=== PATIENT | male | born 1985 | race Caucasian/White ===

== ENCOUNTER 2019-02-10 11:22 | Observation (INO) ==
[2019-02-10] MEDS ORDERED: 0.9 % Sodium Chloride 1,000 ML IVC ONE (11:34)
[2019-02-10 11:43] LABS: Bilirubin,Urine Negative (Negative); Blood,Urine Negative (Negative); Clarity,Urine Clear (Clear); Color,Urine Yellow (Yellow); Glucose,Urine (UA) Normal (Normal); Ketones,Urine Negative (Negative); Leukocyte Esterase,Urine Negative (Negative); Nitrite,Urine Negative (Negative); Protein,Urine Negative (Neg-Trace); Specific Gravity,Urine < 1.005 (1.010-1.025); Urobilinogen,Urine Normal (Normal)
[2019-02-10 11:53] LABS: Amphetamine Screen,Urine Negative ng/mL (Cutoff=1000); Barbiturate Screen,Urine Negative ng/mL (Cutoff=200); Benzodiazepines Screen,Urine Negative ng/mL (Cutoff=200); Cannabinoid Screen,Urine Negative ng/mL (Cutoff = 50); Cocaine Screen,Urine Negative ng/mL (Cutoff= 300); Opiate Screen,Urine Negative ng/mL (Cutoff=300); Phencyclidine Screen,Urine Negative ng/mL (Cutoff=25)
[2019-02-10 11:55] LABS: Basophils % 0.4 %; Eosinophils % 0.2 %; Hematocrit 43.9 % (37.5-50.1); Hemoglobin 15.1 g/dL (12.9-16.9); Immature Granulocytes % 0.7 % (0-4); Lymphocytes # 2.1 K/mcL (0.6-4.6); Lymphocytes % 19.4 %; Mean Corpuscular HGB Conc 34.4 g/dL (31.6-35.5); Mean Corpuscular Hemoglobin 29.7 pg (28.0-33.3); Mean Corpuscular Volume 86.4 fL (83.0-100.0); Mean Platelet Volume 9.1 fL (9.4-12.4); Monocytes # 0.5 K/mcL (0.0-1.3); Monocytes % 4.8 %; Neutrophils # 7.9 K/mcL (1.6-8.9); Platelet Count 305 K/mcL (140-400); Red Blood Count 5.08 M/mcL (4.19-5.50); Red Cell Distribution Width 14.7 % (11.5-14.5); Segmented Neutrophils % 74.5 %
[2019-02-10 12:12] LABS: Acetaminophen < 10 mcg/mL (10-20); Alanine Aminotransferase 22 Units/L (7-52); Albumin 4.7 g/dL (3.5-5.7); Albumin/Globulin Ratio 1.6 (1.1-2.2); Alkaline Phosphatase 123 Units/L (34-104); Aspartate Amino Transferase 14 Units/L (13-39); BUN/Creatinine Ratio 22 (6-26); Bilirubin,Direct 0.1 mg/dL (0.0-0.2); Bilirubin,Indirect 0.4 mg/dL (0.0-1.2); Bilirubin,Total 0.5 mg/dL (0.3-1.0); Blood Urea Nitrogen 16 mg/dL (6-20); Calcium 9.8 mg/dL (8.6-10.3); Carbon Dioxide 22 mEq/L (23-29); Chloride 105 mEq/L (98-107); Ethanol < 10 mg/dL (Less than 10); Glucose 139 mg/dL (70-105); Osmolality,Calculated 289 (280-300); Potassium 3.5 mEq/L (3.5-5.1); Salicylate < 2.5 mg/dL (15.0-30.0); Sodium 138 mEq/L (136-145); Total Protein 7.7 g/dL (6.4-8.9); eGFR For Non-African Americans > 60 (> 60)
[2019-02-10] MEDS ORDERED: Ondansetron 4 MG/2 ML VIAL IVP PRN (12:57)
[2019-02-10] MEDS ORDERED: Acetaminophen 325 MG TABLET PO PRN (12:57)
[2019-02-10] MEDS ORDERED: Naloxone 0.4 MG/ML INJ IVP PRN (12:57)
[2019-02-10] MEDS ORDERED: Nicotine 21 MG PATCH.TD24 TD PRN (13:13)
--- NOTE | 2019-02-10 13:13 | Internal Med History&Physical ---
Date of Encounter: 02/10/19 Time of Encounter: 12:53 Internal Medicine - H&P: HPI Chief complaint: Overdose Admitted From: Emergency Dept History of present illness: Satya Medina is a 33 M w hx dep/anx, HTN, smoker, who p/w intentional drug in gestion/overdose. Patient reports that he took ~70 tablets of seroquel 200 mg and 25 tablets of trazodone 50 mg, as part of an attempted suicide. Says he's had a lot adding up causing stress but refuses to talk about it further. Long history mental health issues and has attempt suicide in the past. No cutting. Is a smoker. In the ED, pt awake and alert without somnolence. Poison control contacted; instructed to monitor for airway compromise and ECG changes. ECG initially normal, and repeat also normal with QTc 412 and no widening of QRS. Pt given NS 1L bolus and admitted for observation. Past medical, surgical, social, and family histories reviewed and updated as below. Past Med Surg Social Fam HX - Past Medical History Medical history: hypertension, kidney stones Additional medical history: HTN, ulcer Psychiatric history: prior suicide attempt, previous psychiatric hospitalization - Past Surgical History Surgical History: appendectomy, herniorrhaphy, other Additional surgical history: Kidney stone removal. perforated ulcers. nose polyps. scopes to knees - Social History Smoking Status: Current every day smoker Smokeless Tobacco Status: No Alcohol use: none Drug use: none - Family History Father Hx Family GI Disorders: Yes (ulceritive cholitis) Internal Medicine - H&P: Meds Gabapentin [Neurontin] 600 mg PO TID 08/02/16 [History] FLUoxetine HCl [Prozac] 40 mg PO DAILY #60 capsule 08/05/16 [Rx] Quetiapine Fumarate [Seroquel] 100 mg PO 0900 #30 tablet 08/05/16 [Rx] Quetiapine Fumarate [Seroquel] 500 mg PO HS #120 tablet 08/05/16 [Rx] Albuterol Sulfate [Proair Hfa] 2 puff IH Q4H PRN 08/06/16 [History] Lisinopril [Zestril] 20 mg PO DAILY 08/06/16 [History] Ibuprofen 800 mg PO TIDWM PRN #20 tablet 08/08/16 [Rx] Ondansetron ODT [Zofran ODT] 4 mg SL Q6HR PRN #10 tab.rapdis 08/08/16 [Rx] Tamsulosin [Flomax] 0.4 mg PO DAILY #30 capsule 08/08/16 [Rx] 3 Allergy/AdvReac Type Severity Reaction Status Date / Time adhesive tape Allergy Rash Verified 12/11/15 11:45 codeine AdvReac Nausea Verified 08/02/16 14:31 All Systems PM: A 10-system review of systems was performed and is negative for pertinent findings except as documented above in the HPI. - Constitutional Vitals: Temp Pulse Resp BP Pulse Ox 97.6 F 84 22 181/124 97 02/10/19 11:28 02/10/19 11:28 02/10/19 11:28 02/10/19 11:28 02/10/19 11:53 Exam: General: NAD, avoidant eye contact, disheveled Head: Atraumatic, normocephalic. Face symmetric Eyes: EOMI, sclerae anicteric ENT: Mucous membranes dry. Normal oral mucosa. Trachea midline. Thoracic: No visible chest wall deformities. Normal breath sounds b/l, no wheezing or crackles Cardio: Normal S1 and S2, regular rate and rhythm, no murmurs Abdomen: Soft, nontender, nondistended. Extremities: Warm, well perfused. DP pulses 2+ b/l. No clubbing, cyanosis. No edema Skin: Intact. No rashes, bruises, or ulcers Neuro: Awake, fully oriented. Good memory, concentration, attention. Speech fluent. CN II-XII grossly intact. Strength 5/5 in b/l UE and LE Internal Med - H&P Results - Labs CBC & Chem 7: 02/10/19 11:43 02/10/19 11:43 Labs: Short CBC 02/10/19 Range/Units 11:43 WBC 10.6 (4.3-11.1) K/mcL Hgb 15.1 (12.9-16.9) g/dL Hct 43.9 (37.5-50.1) % Plt Count 305 (140-400) K/mcL Neutrophils # 7.9 (1.6-8.9) K/mcL BMP 02/10/19 11:43 Sodium 138 Potassium 3.5 Chloride 105 Carbon Dioxide 22 L BUN 16 Creatinine 0.74 Glucose 139 H Calcium 9.8 Liver Function 02/10/19 Range/Units 11:43 Total Bilirubin 0.5 (0.3-1.0) mg/dL Direct Bilirubin 0.1 (0.0-0.2) mg/dL AST 14 (13-39) Units/L ALT 22 (7-52) Units/L Alkaline Phosphatase 123 H (34-104) Units/L Albumin 4.7 (3.5-5.7) g/dL Urine 02/10/19 Range/Units 11:29 Urine Color Yellow (Yellow) Urine Clarity Clear (Clear) Urine pH 7.0 (5.0-8.0) pH Units Ur Specific [place] < 1.005 L (1.010-1.025) Urine Protein Negative (Neg-Trace) mg/dL Urine Glucose (UA) Normal (Normal) mg/dL - Impressions ITS Impressions Chest X-Ray 02/10/19 11:36 IMPRESSION: 1. No active pulmonary disease. D/ / Kvng Hicks MD / Kvng Hicks MD Interpreting Provider: Kvng Hicks MD - Summary of Assessment and Plan Summary of Assessment and Plan: Satya Medina is a 33 M w hx dep/anx, HTN, smoker, who p/w intentional drug ingestion/overdose with seroquel and trazodone. Seroquel overdose: ECG wnl, QTc and QRS normal - monitor for airway compromise - repeat ECG later today Suicide attempt: - suicide precautions - sitter - psych consult when medically stable, likely tomorrow Anx/dep: prior suicide attempts and psych hosp - holding all home meds HTN: holding home lisinopril Smoker: nicotine patch offered PPx: SCDs FEN: regular, MIVF NS@125 Lines: PIV Consults: Psych Code: Full Dispo: obs for seroquel OD, suspect will be medically cleared tomorrow, will need inpatient psych at discharge
--- NOTE | 2019-02-10 13:37 | Emergency Department Note ---
Overdose - [facility] Narrative Medical decision making narrative: Trazodone and Seroquel overdose, suicide attempt - Medical Records Medical records reviewed: Yes I reviewed the patient's medical records. - Lab Data Lab results reviewed: Yes I reviewed the patient's lab results. Result diagrams: 02/10/19 11:43 02/10/19 11:43 Lab Results 02/10/19 02/10/19 02/10/19 Range/Units 11:29 11:29 11:43 WBC 10.6 (4.3-11.1) K/mcL RBC 5.08 (4.19-5.50) M/mcL Hgb 15.1 (12.9-16.9) g/dL Hct 43.9 (37.5-50.1) % MCV 86.4 (83.0-100.0) fL MCH 29.7 (28.0-33.3) pg MCHC 34.4 (31.6-35.5) g/dL RDW 14.7 H (11.5-14.5) % Plt Count 305 (140-400) K/mcL MPV 9.1 L (9.4-12.4) fL Immature Gran % 0.7 (0-4) % Seg Neutrophils % 74.5 % Lymphocytes % 19.4 % Monocytes % 4.8 % Eosinophils % 0.2 % Basophils % 0.4 % Neutrophils # 7.9 (1.6-8.9) K/mcL Lymphocytes # 2.1 (0.6-4.6) K/mcL Monocytes # 0.5 (0.0-1.3) K/mcL Eosinophils # 0.0 (0.0-0.6) K/mcL Basophils # 0.0 (0.0-0.2) K/mcL Sodium (136-145) mEq/L Potassium (3.5-5.1) mEq/L Chloride (98-107) mEq/L Carbon Dioxide (23-29) mEq/L BUN (6-20) mg/dL Creatinine (0.70-1.30) mg/dL Est GFR ( Amer) (> 60) Est GFR (Non-Af Amer) (> 60) BUN/Creatinine Ratio (6-26) Glucose (70-105) mg/dL Calculated Osmolality (280-300) Lactic Acid (0.5-2.2) mmol/L Calcium (8.6-10.3) mg/dL Total Bilirubin (0.3-1.0) mg/dL Direct Bilirubin (0.0-0.2) mg/dL Indirect Bilirubin (0.0-1.2) mg/dL AST (13-39) Units/L ALT (7-52) Units/L Alkaline Phosphatase (34-104) Units/L Serum Total Protein (6.4-8.9) g/dL Albumin (3.5-5.7) g/dL Globulin (2.4-3.5) g/dL Albumin/Globulin Ratio (1.1-2.2) Urine Color Yellow (Yellow) Urine Clarity Clear (Clear) Urine pH 7.0 (5.0-8.0) pH Units Ur Specific [place] < 1.005 L (1.010-1.025) Urine Protein Negative (Neg-Trace) mg/dL Urine Glucose (UA) Normal (Normal) mg/dL Urine Ketones Negative (Negative) mg/dL Urine Blood Negative (Negative) Urine Nitrite Negative (Negative) Urine Bilirubin Negative (Negative) Urine Urobilinogen Normal (Normal) mg/dL Ur Leukocyte Esterase Negative (Negative) Salicylates (15.0-30.0) mg/dL Urine Opiates Screen Negative (Wwwuwf=181) ng/mL Acetaminophen (10-20) mcg/mL Ur Barbiturates Screen Negative (Tvgvyz=333) ng/mL Ur Phencyclidine Scrn Negative (Cutoff=25) ng/mL Ur Amphetamines Screen Negative (Orkrxz=0816) ng/mL U Benzodiazepines Scrn Negative (Ldddmq=181) ng/mL Urine Cocaine Screen Negative (Cutoff= 300) ng/mL U Marijuana (THC) Screen Negative (Cutoff = 50) ng/mL Ur Drug Screen Interp See Below Ethyl Alcohol (Less than 10) mg/dL 02/10/19 02/10/19 Range/Units 11:43 11:43 WBC (4.3-11.1) K/mcL RBC (4.19-5.50) M/mcL Hgb (12.9-16.9) g/dL Hct (37.5-50.1) % MCV (83.0-100.0) fL MCH (28.0-33.3) pg MCHC (31.6-35.5) g/dL RDW (11.5-14.5) % Plt Count (140-400) K/mcL MPV (9.4-12.4) fL Immature Gran % (0-4) % Seg Neutrophils % % Lymphocytes % % Monocytes % % Eosinophils % % Basophils % % Neutrophils # (1.6-8.9) K/mcL Lymphocytes # (0.6-4.6) K/mcL Monocytes # (0.0-1.3) K/mcL Eosinophils # (0.0-0.6) K/mcL Basophils # (0.0-0.2) K/mcL Sodium 138 (136-145) mEq/L Potassium 3.5 (3.5-5.1) mEq/L Chloride 105 (98-107) mEq/L Carbon Dioxide 22 L (23-29) mEq/L BUN 16 (6-20) mg/dL Creatinine 0.74 (0.70-1.30) mg/dL Est GFR ( Amer) > 60 (> 60) Est GFR (Non-Af Amer) > 60 (> 60) BUN/Creatinine Ratio 22 (6-26) Glucose 139 H (70-105) mg/dL Calculated Osmolality 289 (280-300) Lactic Acid 2.3 H (0.5-2.2) mmol/L Calcium 9.8 (8.6-10.3) mg/dL Total Bilirubin 0.5 (0.3-1.0) mg/dL Direct Bilirubin 0.1 (0.0-0.2) mg/dL Indirect Bilirubin 0.4 (0.0-1.2) mg/dL AST 14 (13-39) Units/L ALT 22 (7-52) Units/L Alkaline Phosphatase 123 H (34-104) Units/L Serum Total Protein 7.7 (6.4-8.9) g/dL Albumin 4.7 (3.5-5.7) g/dL Globulin 3.0 (2.4-3.5) g/dL Albumin/Globulin Ratio 1.6 (1.1-2.2) Urine Color (Yellow) Urine Clarity (Clear) Urine pH (5.0-8.0) pH Units Ur Specific [place] (1.010-1.025) Urine Protein (Neg-Trace) mg/dL Urine Glucose (UA) (Normal) mg/dL Urine Ketones (Negative) mg/dL Urine Blood (Negative) Urine Nitrite (Negative) Urine Bilirubin (Negative) Urine Urobilinogen (Normal) mg/dL Ur Leukocyte Esterase (Negative) Salicylates < 2.5 L (15.0-30.0) mg/dL Urine Opiates Screen (Cflkvd=248) ng/mL Acetaminophen < 10 L (10-20) mcg/mL Ur Barbiturates Screen (Xkekqv=351) ng/mL Ur Phencyclidine Scrn (Cutoff=25) ng/mL Ur Amphetamines Screen (Urlpsb=7543) ng/mL U Benzodiazepines Scrn (Hgxspq=156) ng/mL Urine Cocaine Screen (Cutoff= 300) ng/mL U Marijuana (THC) Screen (Cutoff = 50) ng/mL Ur Drug Screen Interp Ethyl Alcohol < 10 (Less than 10) mg/dL - Radiology Data Radiology results reviewed: Yes I reviewed the patient's radiology results. Chest x-ray is unremarkable for acute etiology - EKG Data EKG attestation: Yes I reviewed and interpreted this EKG. EKG results narrative: ekg #1 EKG shows sinus rhythm. Heart rate of 86. AR interval 163. QRS duration 1:15. QTC of 444. [place] is normal. No acute signs of ST segment elevation or abnormality. No acute signs of WPW or Brug[place] syndrome. T-wave inversion noted in lead aVL with no other acute reciprocal changes. No comparable EKG noted in the system. EKG #2. Heart rate of 61. AR interval 161. QRS duration of 114. QTC of 412. [place] is remain stable. No acute signs of progressive changes. No comparable changes and previous EKG completed one hour prior to this EKG. 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 Time of Ingestion: 11:45 Timing confirmed by: other other Multiple Substances: Yes - Related Data Home Medications Medication Instructions Recorded Confirmed Gabapentin [Neurontin] 600 mg PO TID 08/02/16 08/06/16 Albuterol Sulfate [Proair Hfa] 2 puff IH Q4H PRN 08/06/16 08/06/16 Lisinopril [Zestril] 20 mg PO DAILY 08/06/16 08/06/16 Previous Rx's Medication Instructions Recorded FLUoxetine HCl [Prozac] 40 mg PO DAILY #60 capsule 08/05/16 Quetiapine Fumarate [Seroquel] 100 mg PO 0900 #30 tablet 08/05/16 Quetiapine Fumarate [Seroquel] 500 mg PO HS #120 tablet 08/05/16 Ibuprofen 800 mg PO TIDWM PRN #20 tablet 08/08/16 Ondansetron ODT [Zofran ODT] 4 mg SL Q6HR PRN #10 tab.rapdis 08/08/16 Tamsulosin [Flomax] 0.4 mg PO DAILY #30 capsule 08/08/16 Allergies Allergy/AdvReac Type Severity Reaction Status Date / Time adhesive tape Allergy Rash Verified 12/11/15 11:45 codeine AdvReac Nausea Verified 08/02/16 14:31 All systems ED: reviewed and negative except as stated. Review of Systems: As Per HPI Constitutional: Denies: fever, chills, weakness Eyes: Denies: eye pain Cardiovascular: Denies: chest pain, palpitations, dyspnea on exertion, orthopnea Respiratory: Denies: cough, dyspnea, wheezes Gastrointestinal: Denies: abdominal pain, nausea, vomiting, diarrhea Genitourinary: Denies: urgency, dysuria Musculoskeletal: Denies: back pain, neck pain Integumentary: Denies: rash Neurological: Denies: headache Psychiatric: Reports: suicidal thoughts. Denies: anxiety, depression Endocrine: Denies: fatigue Hematological/Lymphatic: Denies: easy bleeding Past Medical History - Past Medical History Attestation: Yes The following information was validated with the patient. Source: patient Medical history: Reports: hypertension, kidney stones Surgical history: Reports: appendectomy, herniorrhaphy, other Psychiatric history: Reports: prior suicide attempt, previous psychiatric hospitalization - Social History Smoking Status: Current every day smoker Smokeless Tobacco Status: No Alcohol use: Reports: none Drug use: Reports: none Physical Exam - General General appearance: alert, anxious - Head Head exam: atraumatic, normocephalic, normal inspection - Eye Eye exam: Present: normal appearance, PERRL, EOMI. Absent: miosis, mydriasis - ENT ENT exam: normal exam, normal oropharynx, mucous membranes moist - Neck Neck exam: Present: normal inspection, full ROM, trachea midline. Absent: tenderness - Chest Chest inspection: Present: normal inspection, symmetric chest wall rise. Absent: tenderness - Respiratory Respiratory exam: Present: normal lung sounds bilaterally - Cardiovascular Cardiovascular exam: Present: regular rate, normal rhythm, normal heart sounds - Abdominal Exam Abdominal exam: Present: soft, Non-Tender, normal bowel sounds. Absent: tenderness, distention, guarding - Extremities Exam Extremities exam: Present: normal inspection - Back Exam Back exam: Present: normal inspection - Neurological Exam Neurological exam: Present: alert, oriented X3, CN II-XII intact, normal gait - Psychiatric Psychiatric exam: Present: suicidal ideation - Skin Skin exam: Present: warm, dry, intact, normal color Course Course Narrative: Patient seen and examined some arrival. See history of present illness. 33-year-old male presents by EMS for evaluation of overdose. Patient ingested approximately 50 tablets of 50 mg of trazodone and 50 tablets of 200 mg Seroquel. Poison Control Center was contacted. Recommendations were for serial EKGs as well as labs looking for other substances of abuse. They did not recommend activated charcoal or gastric lavage at this time. Patient's ingestion as a possible 30 minutes prior to arrival. Patient's vital signs are stable. He is awake his weight is falling questions appropriately. He has normal neurologic evaluation. Oropharynx patent trachea is midline. Lungs are clear heart is regular. Abdomen is soft nontender nondistended with no guarding no rigidity and no peritoneal symptoms at this time. Recommendations from the Poison Control Center were to give 2 g of magnesium and his QTC was greater than 500 and to monitor for any signs of bradycardia or cardiac arrhythmia. At this point patient will have medical screening evaluation completed and then he will be admitted to the hospital for monitoring until he is outside of toxidrome face. He will then be evaluated by the psychiatric team. [place] slip will be signed by myself with concern for the patient's mental health and safety. Disposition is otherwise going to be admission for symptomatically control monitoring. - Reevaluation(s) Reevaluation #1: Repeat EKG does not show any acute changes in the QTC. Patient is otherwise protecting his airway and still acting appropriately. He will be monitored here in the emergency department until the admission process is completed. The hospitalist Dr. Beck and I reviewed the case at length. Recommendation for psychiatric consult will be given during his conversation. Patient is otherwise stable. We will monitor here in the emergency room until admission process is completed. 45 minutes of critical care applied secondary to multidisciplinary intervention as well as concern for cardiac arrhythmia and abnormality Time: 13:46 Vital Signs Temperature 97.6 F 02/10/19 11:28 Pulse Rate 84 02/10/19 11:28 Respiratory Rate 22 02/10/19 11:28 Blood Pressure 181/124 02/10/19 11:28 O2 Sat by Pulse Oximetry 100 02/10/19 11:28 Temperature 97.6 F 02/10/19 11:28 Pulse Rate 84 02/10/19 11:28 Respiratory Rate 22 02/10/19 11:28 Blood Pressure 181/124 02/10/19 11:28 O2 Sat by Pulse Oximetry 97 02/10/19 11:53 Oxygen Delivery Oxygen Delivery Room Air Critical Care Time Critical Care Time: Yes Total Critical Care Time: 45 Attestation: Critical care performed: Time is exclusive of separately billable procedures. Time includes: direct patient care, patient reassessment, coordination of patient care, interpretation of data (laboratory data, radiology data, and respiratory data), review of patient's medical records, medical consultation and documentation of patient care. Procedures included in critical care time: Procedures excluded from critical care time: Disposition Clinical Impression: Suicide attempt Disposition: Admitted As Inpatient Condition: Fair Referrals: NONE,PCP [Primary Care Provider] - Time of Disposition: 13:50
[2019-02-10] MEDS: 0.9 % Sodium Chloride 1,000 ML IVC SCH ×2 (14:57→22:59)
[2019-02-11 04:08] LABS: Hematocrit 36.9 % (37.5-50.1); Mean Corpuscular HGB Conc 33.3 g/dL (31.6-35.5); Mean Corpuscular Hemoglobin 29.2 pg (28.0-33.3); Mean Corpuscular Volume 87.6 fL (83.0-100.0); Mean Platelet Volume 9.3 fL (9.4-12.4); Platelet Count 272 K/mcL (140-400); Red Blood Count 4.21 M/mcL (4.19-5.50)
[2019-02-11 04:21] LABS: BUN/Creatinine Ratio 21 (6-26); Blood Urea Nitrogen 15 mg/dL (6-20); Calcium 9.1 mg/dL (8.6-10.3); Carbon Dioxide 20 mEq/L (23-29); Chloride 109 mEq/L (98-107); Glucose 183 mg/dL (70-105); Magnesium 1.7 mg/dL (1.6-2.6); Osmolality,Calculated 292 (280-300); Potassium 3.9 mEq/L (3.5-5.1); Sodium 138 mEq/L (136-145); eGFR For Non-African Americans > 60 (> 60)
[2019-02-11 04:22] LABS: Hemoglobin 12.3 g/dL (12.9-16.9)
[2019-02-11 07:02] VITALS: BP 133/89
[2019-02-11] MEDS ORDERED: *HR* HYDROcodone/Acet 5/325 mg TABLET PO PRN (08:47)
--- NOTE | 2019-02-11 12:27 | Discharge Summary ---
- NOTES TO OUTPATIENT PROVIDER Notes to Outpatient Provider: f/u with PCP in one week. f/u with Psychiatrist as scheduled. Orders not resulted at time of discharge: Pending orders 02/11/19 08:35 EKG [ECG 12 lead ECG] [ECG] Stat Date of Encounter: 02/11/19 Time of Encounter: 12:26 - Discharge Diagnosis (1) Drug overdose Priority: Primary Status: Acute Qualifiers: Encounter type: initial encounter Injury intent: intentional self-harm Qualified Code(s): T50.902A - Poisoning by unspecified drugs, medicaments and biological substances, intentional self-harm, initial encounter (2) Suicide attempt Priority: Primary Status: Acute (3) Rt flank pain Priority: Secondary Status: Acute (4) Renal stone Priority: Secondary Status: Acute (5) Hypertension Priority: Secondary Status: Chronic Qualifiers: Hypertension type: essential hypertension Qualified Code(s): I10 - Essential (primary) hypertension (6) Tobacco dependence Priority: Secondary Status: Acute Hospital course: Mr. Medina is a 33 year old male with a known past medical history of hyperten josr, chronic tobacco dependence, depression, anxiety and history of suicidal ideation with inpatient psychiatric hospitalization now he presented to ER with intentional drug overdose. As per pt he did take 70 tablets of seroquel 200 mg and 25 tablets of trazodone 50 mg, as part of an attempted suicide. When he presented to the ER he was alert, awake, O x 4. His initial EKG showed normal sinus rhythm with normal QTC @ 412 and no widening QRS. Patient was admitted in the hospital and placed him on monitoring manager. No events over night. This morning complaining about right flank pain, since he does have h/o chronic nephrolithiasis, we did CT of abdomen and pelvis which showed chronic non- obstructive nephrolithiasis in bilateral kidneys. He denied any more flank pain. His repeat EKG this morning showed NSR, Normal QT interval. Pt was evaluated by psychiatrist who recommended to transfer the pt to in patient psych unit for further care. - Time Spent with Patient Total time spent providing and/or coordinating discharge services: - Discharge Medications Prescriptions: New HYDROcodone/Acet 5/325 mg [[place] 5-325 mg] 1 tab PO Q8HR PRN 5 Days #15 tablet PRN Reason: Moderate Pain Nicotine Patch [Nicoderm] 21 mg TD DAILY PRN #30 patch.[id number] PRN Reason: Nicotine Cravings Continue Lisinopril [Zestril] 20 mg PO DAILY Lurasidone [Latuda] 40 mg PO DAILY Melatonin 10 mg PO HS Mirtazapine [Remeron] 15 mg PO HS Omeprazole [PriLOSEC] 40 mg PO DAILY Tramadol HCl [Ultram] 50 mg PO QID PRN PRN Reason: Pain Home Medications: Lisinopril [Zestril] 20 mg PO DAILY 08/06/16 [History] Lurasidone [Latuda] 40 mg PO DAILY 02/10/19 [History] Melatonin 10 mg PO HS 02/10/19 [History] Mirtazapine [Remeron] 15 mg PO HS 02/10/19 [History] Omeprazole [PriLOSEC] 40 mg PO DAILY 02/10/19 [History] Tramadol HCl [Ultram] 50 mg PO QID PRN 02/10/19 [History] HYDROcodone/Acet 5/325 mg [[place] 5-325 mg] 1 tab PO Q8HR PRN 5 Days #15 tablet 02/11/19 [Rx] Nicotine Patch [Nicoderm] 21 mg TD DAILY PRN #30 patch.[id number] 02/11/19 [Rx] Allergies/Adverse Reactions: Allergy/AdvReac Type Severity Reaction Status Date / Time adhesive tape Allergy Rash Verified 12/11/15 11:45 codeine AdvReac Nausea Verified 08/02/16 14:31 Date of admission: 02/10/19 13:36 Primary care physician: PCP NONE Consults: 02/10/19 12:59 Consult to Vocational Nurse [CONS] Routine Reason for SW Consult: overdose 02/11/19 06:00 Consult to Psychiatry [CONS] Routine Consulting Provider: Psychiatry Claudia Reason consult: [place] slip on chart Other reason and/or additional details: suicide attempt [place] Slip initiated date and time: on admission to ED, ~11a on 02/10 - Constitutional Vitals: Temp Pulse Resp BP Pulse Ox 98.4 F 53 17 133/89 96 02/11/19 06:59 02/11/19 06:59 02/11/19 06:59 02/11/19 06:59 02/11/19 07:31 General appearance: Present: A&O X 3, no acute distress, answers questions appropriately Exam: . - Head Head exam: Present: atraumatic - Neck Neck exam general surgery: Present: supple - Respiratory Respiratory exam: Present: decreased breath sounds. Absent: rales, respiratory distress, rhonchi, wheezes - Cardiovascular Cardiovascular exam: Present: RRR, +S1, +S2. Absent: tachycardia - GI/Abdominal GI/Abdominal exam: Present: normal bowel sounds, soft. Absent: rebound, rigid, tenderness - Extremities Exam Extremities exam: Absent: calf tenderness, pedal edema, tenderness - Back Exam Back exam: Absent: CVA tenderness (L), CVA tenderness (R) - Psychiatric Psychiatric exam: Present: depressed. Absent: homicidal ideation, suicidal ideation - Skin Skin exam: Absent: rash - Patient Status Disposition: Transfer Psychiatric Hosp Condition: Good - Discharge Instructions Forms: ED Satisfaction Letter - Diet and Activity Activity: increase activity as tolerated Diet: low salt diet
--- NOTE | 2019-02-11 13:04 | Consult Note ---
Date of Encounter: 02/11/19 Time of Encounter: 09:30 Assessment & Recommendation (1) MDD (major depressive disorder), recurrent severe, without psychosis Status: Acute Assessment & Recommendation: -As patient is currently having suicidal ideation with a plan and intent, he is seem to be at high and imminent risk for suicide at this time. As such, once medically cleared, we recommend transfer to 1A inpatient psychiatric unit for psychiatric stabilization. -Patient did have moderate to severe right flank pain today. A CT of the abdomen and pelvis was conducted, which was negative for acute factors. Additionally, later in the day, patient denied pain. As such, psychiatry is not concerned about this issue at this time. However, his pain will be monitored while on the unit. -Will see again upon transfer to for further medication stabilization History of Present Illness Patient: new to practice Requesting Physician: Mandeep Dukse MD Reason for consult: Attempted overdose History of present illness: Mr. Medina is a 33 year old male with a past psychiatric history of major depressive disorder and bipolar disorder who was admitted on 02/10/2019 and he will was consulted to psychiatry today for an attempted overdose. The report states that patient came in explaining that he took approximately 70 tablets of quetiapine 200 mg and 25 tablets of trazodone 50 mg. He was somnolent but responsive when resenting to the emergency department. He was guarded during the interview, just stating that he had "a lot of stress." Reports to state that he had a past history of suicide attempts. When seeing the patient today, he reports he is "okay." He explained that "I was hoping I would wake up." He reports several stressors, including that his work hours were cut by half and he lost his house. He now reports that he is homeless, stating that he sleeps outside at times and usually walks around at night. He reports current suicidal ideation, stating that he would "double the pills" that he took. He reports that he has "nothing to live for." He denies access to firearms. He does report a "couple" suicide attempts in the past, the last being 3 years ago. He reports chronic depression since the age of 13 that is constant in nature. He states that his current depression is an 8-9/10. He reports "through the roof" anxiety. He states he usually has issues with sleep, stating that last night was the first night of decent sleep he is received in a long time. He denies issues with appetite. He denies side effects to medications. He reports that he takes lurasidone, melatonin, and mirtazapine. He states that he has only taken lurasidone for a month. He denies current homicidal ideation as well as auditory and visual hallucinations. CC: Mandeep Dukes MD Past Med Surg Social Fam HX - Past Medical History Source: patient Medical history: hypertension, kidney stones - Past Psychiatric History Psychiatric history: Reports: bipolar, depression, prior suicide attempt Family psychiatric history: Unknown Family History of Suicide: Unknown - Past Surgical History Surgical History: appendectomy, herniorrhaphy, other - Social History Smoking Status: Current every day smoker Packs per day: 1 / Smokeless Tobacco Status: No Alcohol use: none Drug use: marijuana Occupational status: employed Current living situation: Homeless Activity Level: Independent ambulation Recent Out of Country Travel Within the Last 8 Weeks: No - Family History Father Hx Family GI Disorders: Yes (ulceritive cholitis) Medications & Allergies RX: Lisinopril [Zestril] 20 mg PO DAILY 08/06/16 [History] RX: Lurasidone [Latuda] 40 mg PO DAILY 02/10/19 [History] RX: Melatonin 10 mg PO HS 02/10/19 [History] RX: Mirtazapine [Remeron] 15 mg PO HS 02/10/19 [History] RX: Omeprazole [PriLOSEC] 40 mg PO DAILY 02/10/19 [History] RX: Tramadol HCl [Ultram] 50 mg PO QID PRN 02/10/19 [History] RX: HYDROcodone/Acet 5/325 mg [Lawrence 5-325 mg] 1 tab PO Q8HR PRN 5 Days #15 tablet 02/11/19 [Rx] RX: Nicotine Patch [Nicoderm] 21 mg TD DAILY PRN #30 patch.td24 02/11/19 [Rx] Allergy/AdvReac Type Severity Reaction Status Date / Time adhesive tape Allergy Rash Verified 12/11/15 11:45 codeine AdvReac Nausea Verified 08/02/16 14:31 Review of Systems Gastrointestinal: Reports: abdominal pain (Right-sided pain) Psychiatric: Reports: depression, anxiety, abnormal sleep pattern, suicidal ideation, hopelessness. Denies: change in appetite, homicidal ideation, auditory hallucinations, visual hallucinations Psychiatry Exam - Constitutional Vitals: Temp Pulse Resp BP Pulse Ox 98.4 F 53 17 133/89 96 02/11/19 06:59 02/11/19 06:59 02/11/19 06:59 02/11/19 06:59 02/11/19 07:31 General appearance: age & developmentally appropriate, well-groomed, well- nourished, average - Musculoskeletal Gait: other (Not assessed) Station: relaxed Strength & Tone: normal for patient (Grossly) - Psychiatric Patient Orientation: Yes Person, Yes Time, Yes Place, Yes Circumstance Level of alertness: Alert, Follows commands Behavior: calm, cooperative Psychomotor activity: Normal Eye Contact: Maintains Eye Contact Mood Description: Depressed, Anxious Patient description of mood: "Okay" Affect description: congruent with mood, constricted Speech Volume: Normal Speech pattern: normal rate, normal tone, fluent, spontaneous, appropriate, clear, coherent, limited (Decreased prosody) Language & Vocabulary: consistent with education Thought Process: Logical, Linear, Goal Oriented Thought Content: Yes Suicidal ideation (Suicidal ideation with plan and intent), No Homicidal ideation, No Overt delusions Perceptual Disturbances: No Reacting to internal stimuli, No Auditory hallucinations, No Visual hallucinations Attention Span Ability: Capable of Focused Attention Memory Description: Grossly Intact Patient Reliability: Reliable Historian Fund of knowledge: Yes aware of current events Intelligence Estimate: Average Judgment: Poor Insight: Partial Results - Drug Levels and Toxicology Drug Levels and Toxicology: None noted this a.m. - Labs Labs: Laboratory Last Values WBC 8.0 K/mcL (4.3-11.1) 02/11/19 03:40 RBC 4.21 M/mcL (4.19-5.50) 02/11/19 03:40 Hgb 12.3 g/dL (12.9-16.9) L D 02/11/19 03:40 Hct 36.9 % (37.5-50.1) L 02/11/19 03:40 MCV 87.6 fL (83.0-100.0) 02/11/19 03:40 MCH 29.2 pg (28.0-33.3) 02/11/19 03:40 MCHC 33.3 g/dL (31.6-35.5) 02/11/19 03:40 RDW 15.0 % (11.5-14.5) H 02/11/19 03:40 Plt Count 272 K/mcL (140-400) 02/11/19 03:40 MPV 9.3 fL (9.4-12.4) L 02/11/19 03:40 Immature Gran % 0.7 % (0-4) 02/10/19 11:43 Seg Neutrophils % 74.5 % 02/10/19 11:43 Lymphocytes % 19.4 % 02/10/19 11:43 Monocytes % 4.8 % 02/10/19 11:43 Eosinophils % 0.2 % 02/10/19 11:43 Basophils % 0.4 % 02/10/19 11:43 Neutrophils # 7.9 K/mcL (1.6-8.9) 02/10/19 11:43 Lymphocytes # 2.1 K/mcL (0.6-4.6) 02/10/19 11:43 Monocytes # 0.5 K/mcL (0.0-1.3) 02/10/19 11:43 Eosinophils # 0.0 K/mcL (0.0-0.6) 02/10/19 11:43 Basophils # 0.0 K/mcL (0.0-0.2) 02/10/19 11:43 Sodium 138 mEq/L (136-145) 02/11/19 03:40 Potassium 3.9 mEq/L (3.5-5.1) 02/11/19 03:40 Chloride 109 mEq/L (98-107) H 02/11/19 03:40 Carbon Dioxide 20 mEq/L (23-29) L 02/11/19 03:40 BUN 15 mg/dL (6-20) 02/11/19 03:40 Creatinine 0.73 mg/dL (0.70-1.30) 02/11/19 03:40 Est GFR ( Amer) > 60 (> 60) 02/11/19 03:40 Est GFR (Non-Af Amer) > 60 (> 60) 02/11/19 03:40 BUN/Creatinine Ratio 21 (6-26) 02/11/19 03:40 Glucose 183 mg/dL (70-105) H 02/11/19 03:40 Calculated Osmolality 292 (280-300) 02/11/19 03:40 Lactic Acid 2.0 mmol/L (0.5-2.2) 02/10/19 15:23 Calcium 9.1 mg/dL (8.6-10.3) 02/11/19 03:40 Magnesium 1.7 mg/dL (1.6-2.6) 02/11/19 03:40 Total Bilirubin 0.5 mg/dL (0.3-1.0) 02/10/19 11:43 Direct Bilirubin 0.1 mg/dL (0.0-0.2) 02/10/19 11:43 Indirect Bilirubin 0.4 mg/dL (0.0-1.2) 02/10/19 11:43 AST 14 Units/L (13-39) 02/10/19 11:43 ALT 22 Units/L (7-52) 02/10/19 11:43 Alkaline Phosphatase 123 Units/L (34-104) H 02/10/19 11:43 Serum Total Protein 7.7 g/dL (6.4-8.9) 02/10/19 11:43 Albumin 4.7 g/dL (3.5-5.7) 02/10/19 11:43 Globulin 3.0 g/dL (2.4-3.5) 02/10/19 11:43 Albumin/Globulin Ratio 1.6 (1.1-2.2) 02/10/19 11:43 Urine Color Yellow (Yellow) 02/10/19 11:29 Urine Clarity Clear (Clear) 02/10/19 11:29 Urine pH 7.0 pH Units (5.0-8.0) 02/10/19 11:29 Ur Specific [place] < 1.005 (1.010-1.025) L 02/10/19 11:29 Urine Protein Negative mg/dL (Neg-Trace) 02/10/19 11:29 Urine Glucose (UA) Normal mg/dL (Normal) 02/10/19 11:29 Urine Ketones Negative mg/dL (Negative) 02/10/19 11:29 Urine Blood Negative (Negative) 02/10/19 11:29 Urine Nitrite Negative (Negative) 02/10/19 11:29 Urine Bilirubin Negative (Negative) 02/10/19 11:29 Urine Urobilinogen Normal mg/dL (Normal) 02/10/19 11:29 Ur Leukocyte Esterase Negative (Negative) 02/10/19 11:29 Salicylates < 2.5 mg/dL (15.0-30.0) L 02/10/19 11:43 Urine Opiates Screen Negative ng/mL (Fhxxyu=011) 02/10/19 11:29 Acetaminophen < 10 mcg/mL (10-20) L 02/10/19 11:43 Ur Barbiturates Screen Negative ng/mL (Qwqmcg=156) 02/10/19 11:29 Ur Phencyclidine Scrn Negative ng/mL (Cutoff=25) 02/10/19 11:29 Ur Amphetamines Screen Negative ng/mL (Dthnrr=6137) 02/10/19 11:29 U Benzodiazepines Scrn Negative ng/mL (Lsveas=669) 02/10/19 11:29 Urine Cocaine Screen Negative ng/mL (Cutoff= 300) 02/10/19 11:29 U Marijuana (THC) Screen Negative ng/mL (Cutoff = 50) 02/10/19 11:29 Ur Drug Screen Interp See Below 02/10/19 11:29 Ethyl Alcohol < 10 mg/dL (Less than 10) 02/10/19 11:43 - Impressions Impressions Abdomen/Pelvis CT 02/11/19 08:47 IMPRESSION: 1. No acute intra-abdominal or intrapelvic process. Specifically, no evidence of obstructive uropathy. 2. Bilateral nephrolithiasis. 3. Urinary bladder stone seen on the previous exam has passed. 4. The patient does have trace bilateral pleural effusions which are new from the previous exam. These are of unclear etiology. There is associated bibasilar atelectasis. Follow-up chest radiographs recommended to ensure resolution. 5. Status post appendectomy. D/ / Daniel Zamudio MD / Daniel Zamudio MD Interpreting Provider: Daniel Zamudio MD Consult Discharge Plan - Plan Referrals: NONE,PCP [Primary Care Provider] - Prescriptions: RX: HYDROcodone/Acet 5/325 mg [[place] 5-325 mg] 1 tab PO Q8HR PRN 5 Days #15 tablet PRN Reason: Moderate Pain RX: Nicotine Patch [Nicoderm] 21 mg TD DAILY PRN #30 patch.td24 PRN Reason: Nicotine Cravings - Attending Attestation I examined this patient and my medical decision-making was reviewed with the Resident Physician. I agree with the documented findings, disposition and treatment plan as described except to the extent set forth below.
--- NOTE | 2019-02-11 17:58 | Electrocardiograph Report ---
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
--- NOTE | 2019-02-11 18:00 | Electrocardiograph Report ---
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
--- NOTE | 2019-02-11 18:00 | Electrocardiograph Report ---
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
--- NOTE | 2019-02-12 17:43 | Electrocardiograph Report ---
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
== END 2019-02-11 16:55 ==
LOC: 3BNU 11:22 → EMEROOARM 11:22 → SUATTDRO 13:36 → 3BNU 14:12
PROVIDERS: ADMIT Internal Medicine; ATTEND Family Medicine